=== PATIENT | male | born 1970 | race Caucasian/White ===

== ENCOUNTER 2018-04-14 21:36 | Emergency (ER) | payer BC ==
[2018-04-14 21:43] VITALS: BP 137/89; PULSE 88; TEMP 98.1; BMI 36.9
--- NOTE | 2018-04-14 22:12 | PDOC ---
History of Present Illness - General Chief Complaint: Pain Stated Complaint: L WRIST PAIN Time Seen by Provider: 04/14/18 22:08 History Source: Patient Exam Limitations: No Limitations - History of Present Illness Initial Comments: 04/14/18 22:09 HISTORY OF PRESENT ILLNESS: 48-year-old male with atraumatic left wrist pain for the past 5 days. Patient was seen and evaluated in urgent care was told he had questionable old healing fracture in his left wrist the patient reports never having broken his wrist. Patient did have boxer fracture of the right hand as a child but never injury to left hand, wrist or forearm. 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 Patient concerned as he has had more pain and swelling over the day today. Patient has an appointment with orthopedics on 04/16. No recent travel or sick contacts. PAST MEDICAL HISTORY: Denies past medical history SURGICAL HISTORY: Denies ALLERGIES: No known drug allergies REVIEW OF SYSTEMS General/Constitutional: Denies fever or chills. Denies weakness, weight change. HEENT: Denies change in vision. Denies ear pain or discharge. Denies sore throat. Cardiovascular: Denies chest pain or shortness of breath. Respiratory: Denies cough, wheezing, or hemoptysis. Gastrointestinal: Denies nausea, vomiting, diarrhea or constipation. Denies rectal bleeding. Genitourinary: Denies dysuria, frequency, or change in urination. Musculoskeletal: see HPI Skin and breasts: Denies rash or easy bruising. Neurologic: Denies headache, vertigo, loss of consciousness, or loss of sensation. Psychiatric: Denies depression or anxiety. Endocrine: Denies increased thirst. Denies abnormal weight change. Hematologic/Lymphatic: Denies anemia, easy bleeding, or history of blood clots. Allergic/Immunologic: Denies hives or skin allergy. Denies latex allergy. PHYSICAL EXAM General Appearance: Well-appearing, appropriately dressed. No apparent distress , no intoxication. Vascular Pulses: Radial (R): 2+, Radial (L): 2+ Musculoskeletal/Extremities: Normal inspection. FPROM of all extremities, normal capillary refill. Pelvis Stable. No CVA tenderness. No tenderness to extremities, pedal edema, erythema or deformity. Swelling present over left midshaft ulna. Integumentary: Appropriate color, dry, warm. No cyanosis, erythema, jaundice or rash Neurologic: access rn II-XII intact. Fully oriented, alert. Appropriate mood/affect. Motor strength 5/5. No appreciable EOM palsy, facial droop or sensory deficit. Past History - Past Medical History Allergies/Adverse Reactions: Allergies Allergy/AdvReac Type Severity Reaction Status Date / Time No Known Allergies Allergy Verified 04/14/18 21:44 COPD: No - Surgical History Abdominal Surgery: Yes (GASTRIC SLEEVE.) - Suicide/Smoking/Psychosocial Hx Smoking History: Never smoked *Physical Exam - Vital Signs Last Vital Signs Temp Pulse Resp BP Pulse Ox 98.1 F 88 18 137/89 97 04/14/18 21:41 04/14/18 21:41 04/14/18 21:41 04/14/18 21:41 04/14/18 21:41 Moderate Sedation - Procedure Monitoring Vital Signs: Procedure Monitoring Vital Signs Temperature 98.1 F 04/14/18 21:41 Pulse Rate 88 04/14/18 21:41 Respiratory Rate 18 04/14/18 21:41 Blood Pressure 137/89 04/14/18 21:41 O2 Sat by Pulse Oximetry (%) 97 04/14/18 21:41 ED Treatment Course - RADIOLOGY Radiology Studies Ordered: Category Date Time Status FOREARM- LEFT [RAD] Stat Radiology 04/14/18 22:08 Ordered WRIST W/HAND-LEFT* [RAD] Stat Radiology 04/14/18 22:08 Ordered Medical Decision Making - Medical Decision Making 04/14/18 22:12 A/P: 48-year-old male with left wrist pain 5 days Sprain versus fracture versus tendinitis X-rays Percocet 1 tablet orally now Reassess 04/14/18 22:45 X-rays as read by me: Calcification present in the mortise distal to the left ulna. Appears old. Zion wrap to wrist Discharge home to follow-up with orthopedics on Monday as previous as scheduled. I discussed the physical exam findings, ancillary test results and final diagnoses with the patient. I answered all of the patient's questions. The patient was satisfied with the care received and felt comfortable with the discharge plan and treatment plan. The patient will call their primary care physician within 24 hours to arrange follow-up and will return to the Emergency Department with any new, persistent or worsening symptoms. *DC/Admit/Observation/Transfer Diagnosis at time of Disposition: Left wrist pain - Discharge Dispostion Disposition: HOME Condition at time of disposition: Stable Decision to Admit order: No - Referrals Referrals: Fran Fox [Primary Care Provider] - Brayan Field MD [Staff Physician] - - Patient Instructions Additional Instructions: Rest. Take Tylenol or Motrin as needed for pain. Follow manufacturers instructions for appropriate dosage. Apply ice for 20 minutes and removed for at least 20 minutes before reapplying the ice. Keep Zion wrap on your wrist as much as possible to help decrease some of the swelling control pain. Whenever possible keep your hand elevated. You've been given the number for an orthopedist. If symptoms do not resolve within the next 7 days call the orthopedist for further evaluation. Return to emergency department for discoloration of the fingers or hand, numbness or tingling to the fingers or hand, worsening pain, or any other concerns. Thank you very much for choosing us to provide your emergent healthcare needs. - Post Discharge Activity Forms/Work/School Notes: Back to Work
== END 2018-04-14 22:52 | disposition home or self-care (01) ==
LOC: JERFT 21:36
DX: M25.532 Pain in left wrist (principal)
CPT/HCPCS: 73090-TC-LT-FY; 73110-TC-LT-FY; 73130-TC-LT-FY; 99281-25

== ENCOUNTER 2022-07-23 23:26 | Inpatient (IN) | payer BC ==
[2022-07-23 23:32] VITALS: BMI 41.3
[2022-07-24 00:47] LABS: BASO % 0.6 % (0-2.0); EOS % 3.3 % (0-4.5); HEMATOCRIT 39.2 % (35.4-49); HEMOGLOBIN 13.3 GM/dL (11.7-16.9); LYMPH % 31.4 % (8-40); MCH 28.4 pg (25.7-33.7); MCHC 33.8 g/dl (32.0-35.9); MEAN CELL VOLUME 84.2 fl (80-96); MEAN PLT VOLUME 8.2 fl (7.5-11.1); MONO % 11.3 % (3.8-10.2); NEUT % 53.4 % (42.8-82.8); PLATELET COUNT 242 10^3/uL (134-434); RBC 4.66 M/mm3 (4.00-5.60); RDW 13.4 % (11.9-15.9)
[2022-07-24 00:55] LABS: INR 0.92 (0.83-1.09); PROTHROMBIN TIME (PATIENT) 10.7 SEC (9.7-13.0)
[2022-07-24 00:58] LABS: ACTIVATED PTT 27.3 SECONDS (25.2-36.5)
[2022-07-24 01:04] LABS: POTASSIUM 4.9 mmol/L (3.5-5.1)
[2022-07-24 01:07] LABS: ALBUMIN 3.2 g/dl (3.4-5.0); BLOOD UREA NITROGEN 14.9 mg/dL (7-18); CALCIUM 8.5 mg/dL (8.5-10.1); MAGNESIUM 1.9 mg/dL (1.8-2.4)
[2022-07-24 01:10] LABS: CREATININE 0.7 mg/dL (0.55-1.3)
[2022-07-24 01:12] LABS: BILIRUBIN,TOTAL 0.2 mg/dL (0.2-1); TOT PROT 6.7 g/dl (6.4-8.2)
[2022-07-24 01:15] LABS: N-TERMINAL BNP 55.1 pg/ml (5-125)
[2022-07-24] MEDS ORDERED: FAMOTIDINE 20 MG TABLET PO STA (02:44)
[2022-07-24] MEDS ORDERED: ENOXAPARIN NA (PORCINE) 40 MG/0.4 ML DISP.SYRIN SQ SCH (02:45)
[2022-07-24] MEDS ORDERED: FAMOTIDINE 20 MG TABLET ONE (03:03)
[2022-07-24] MEDS ORDERED: ASPIRIN 325 MG TABLET PO ONE (03:37)
[2022-07-24] MEDS ORDERED: ASPIRIN 325 MG TABLET ONE (03:40)
[2022-07-24] MEDS ORDERED: HEPARIN NA (PORCINE) 5,000 UNITS/ML 1ML VIAL IVPUSH PRN ×2 (09:47)
[2022-07-24] MEDS ORDERED: HEPARIN INFUSION - 25,000 UNITS/500 ML INFUS.BAG IVPB SCH (10:00)
[2022-07-24] MEDS ORDERED: METOPROLOL TARTRATE 50 MG TABLET (FP) PO SCH (10:00)
[2022-07-24] MEDS ORDERED: METOPROLOL TARTRATE 50 MG TABLET (FP) ONE (10:07)
[2022-07-24] MEDS ORDERED: HEPARIN INFUSION - 25,000 UNITS/500 ML INFUS.BAG IVPB ONE (10:07)
[2022-07-24] MEDS ORDERED: PANTOPRAZOLE SODIUM 40 MG VIAL IVPUSH SCH (13:15)
[2022-07-24] MEDS ORDERED: PANTOPRAZOLE SODIUM 40 MG VIAL ONE (14:05)
[2022-07-24] MEDS ORDERED: CLOPIDOGREL BISULFATE 300 MG TABLET PO ONE (14:18)
[2022-07-24] MEDS ORDERED: CLOPIDOGREL BISULFATE 300 MG TABLET ONE (14:59)
[2022-07-24 17:38] VITALS: BP 134/83; PULSE 78; RESP 16; TEMP 98.7
== END 2022-07-24 17:42 | disposition short-term general hospital (02) | DRG 281 ==
LOC: JER 23:26 → JERBED 07-24 01:50 → OBSVTOIN 07-24 10:49
PROVIDERS: ADMIT Internal Medicine; ATTEND Internal Medicine
DX: I21.19 ST elevation (STEMI) myocardial infarction involving other coronary artery of inferior wall (principal); Z68.41 Body mass index [BMI] 40.0-44.9, adult; R07.9 Chest pain, unspecified; E66.9 Obesity, unspecified; K21.9 Gastro-esophageal reflux disease without esophagitis; G47.33 Obstructive sleep apnea (adult) (pediatric)
CPT/HCPCS: 0241U-QW; 36415; 71045-TC-FY; 71275-TC; 80053; 80061; 82962; 83036; 83690; 83735; 83880; 84484; 85025; 85379; 85610; 85730; 93005; 93010; 99285-25; G0378; J1644; Q9967

== ENCOUNTER 2024-10-07 20:05 | Emergency (ER) | payer BC ==
[2024-10-07 20:20] VITALS: BP 118/82; PULSE 82; RESP 18; TEMP 98.3; BMI 34.7
[2024-10-07] MEDS ORDERED: predniSONE 20 MG TABLET (UD) ONE (21:07)
[2024-10-07] MEDS ORDERED: CEPHALEXIN MONOHYDRATE 500 MG CAPSULE (UD) ONE (21:08)
[2024-10-07] MEDS: predniSONE 20 MG TABLET (UD) PO ONE (21:11)
[2024-10-07] MEDS: CEPHALEXIN MONOHYDRATE 500 MG CAPSULE (UD) PO ONE (21:11)
== END 2024-10-07 21:13 | disposition home or self-care (01) ==
LOC: JER 20:05 → JERFT 20:05
DX: A46 Erysipelas (principal); S01.331A Puncture wound without foreign body of right ear, initial encounter; T63.441A Toxic effect of venom of bees, accidental (unintentional), initial encounter; X58.XXXA Exposure to other specified factors, initial encounter
CPT/HCPCS: 99283-25